=== PATIENT | female | born 1960 | race Caucasian/White ===

== ENCOUNTER 2018-05-16 02:06 | Inpatient (IN) | payer OTHER ==
[~2018-05-16] VITALS: Ht 160 cm; Wt 50.9 kg
[2018-05-16] VITALS (8 sets, daily range): BP systolic 97–149; BP diastolic 75–93
[2018-05-16] MEDS ORDERED: LIDOCAINE 1% W/EPINEPHRINE 20 ML VIAL INJ STA (02:34)
[2018-05-16] MEDS ORDERED: VANCOMYCIN 1GM/NS 250 ML 250 ML IV STA (02:45)
[2018-05-16] MEDS ORDERED: INSULIN REGULAR, HUMAN 100 UNIT/1 ML 3ML VIAL SQ STA (02:59)
[2018-05-16] MEDS ORDERED: DEXTROSE 50% SYRINGE 50 ML IV PRN (03:00)
[2018-05-16] MEDS ORDERED: SODIUM CHLORIDE FLUSH 10 ML SYR INJ PRN (03:00)
[2018-05-16] MEDS ORDERED: ONDANSETRON HCL INJ 2 MG/ML VIAL IV PRN (03:00)
[2018-05-16] MEDS ORDERED: POTASSIUM CHLORIDE 20 MEQ TAB CR PO STA (03:01)
[2018-05-16] MEDS: INSULIN REGULAR, HUMAN 100 UNIT/1 ML 3ML VIAL SQ SCH ×4 (08:09→20:12)
[2018-05-16] MEDS ORDERED: CEFEPIME 1GM/NS 0.9% 50 ML 50 ML IV SCH (10:45)
[2018-05-16] MEDS: FAMOTIDINE 20 MG TAB PO SCH ×2 (11:45→17:52)
[2018-05-16] MEDS: CEFEPIME HCL 1 GM VIAL IV SCH ×2 (11:45→20:00)
[2018-05-16] MEDS: METFORMIN HCL 500 MG TAB PO SCH ×2 (11:45→17:53)
--- NOTE | 2018-05-16 13:44 | History and Physical ---
PRIMARY CARE PHYSICIAN: Patient has no primary care, goes to the [facility]. Has not seen a doctor in a while. CHIEF COMPLAINT: Boil, right upper extremity. HISTORY OF PRESENT ILLNESS: Ms. Taylor is a 57-year-old lady who is a chronic smoker. She also is a drug abuser. She admits to injecting crystal meth at the site where she has now an abscess which has been I\T\D'd in the emergency room. She has some surrounding erythema, also has some erythema in the lower part of the arm with a small blister. She states she did not inject there, but may have gotten bitten by a bug. This has been going on for the last couple of weeks, getting worse. Patient only now comes to the hospital for evaluation. REVIEW OF SYSTEMS: She describes some subjective fever and chills. She denies weight loss. She denies sinus congestion or sore throat. She denies chest pain or palpitation. She denies shortness breath, wheezing or cough. She denies abdominal pain, nausea, vomiting or melena. She denies dysuria or flank pain. She denies rash, although has swelling and erythema of both upper and lower right extremity. She denies bleeding or bruising. She denies joint pain or swelling. She denies headache, vertigo or loss of consciousness. She denies depression, agitation, homicide or suicidal ideation, but does admit to drug abuse. PAST MEDICAL HISTORY: Significant for longstanding hypertension and type 2 diabetes. She is currently taking no medications. She has been out for a long time. She had previously been on blood pressure medicine and metformin and insulin; however, again not taking any medication recently in the last couple of months. She has a history of ankle surgery. She is a chronic smoker and drug abuser. ALLERGIES: SHE HAS A STATED ALLERGY TO DEPAKOTE AND PENICILLIN. FAMILY HISTORY: Remarkable for some scattered hypertension and diabetes. SOCIAL HISTORY: The patient is . [place]ian is her primary language. She does admit to smoking on a daily basis. She does admit to drug abuse, both crystal meth and marijuana. She is generally independently functioning. PHYSICAL EXAM PSYCHIATRIC: She is alert and oriented x3 with normal mood and affect. CONSTITUTIONAL: She has a normal body habitus, somewhat underweight 100 pounds. She is in no acute distress. VITAL SIGNS: Blood pressure 120/79, pulse 84 and regular, respiratory rate 14, O2 sat 99% on room air, and temperature 98.4. HEENT: Her head is atraumatic. Her eyes are anicteric. Ears and nares are without erythema or discharge. Oropharynx was clear. She has very poor dentition. NECK: Supple with no mass or thyromegaly. LYMPHATIC SYSTEM: She has no palpable cervical, axillary or inguinal adenopathy. CARDIOVASCULAR: Her heart has a regular rate and rhythm without murmur or extra heart sounds. She has no carotid bruit. She has weak dorsal pedal pulses and no edema. RESPIRATORY: Clear to auscultation and percussion with somewhat diminished breath sounds. She has normal respiratory effort. GASTROINTESTINAL: Abdomen is soft without organomegaly, masses or tenderness. She has normal bowel sounds present. CUTANEOUS: Her skin is warm and dry to the touch. She has some erythema and swelling in the right upper extremity. She has some erythema in the lower part. On the lateral forearm, there is some area of erythema with a central blister. On the upper arm, there is a surgical dressing, status post I and D and abscess in the emergency department. MUSCULOSKELETAL: Her joints are in normal alignment without erythema or swelling. She has no calf tenderness. NEUROLOGIC: Nonfocal with intact cranial nerves and no motor or sensory deficits. DIAGNOSTIC STUDIES: Her UA is clear. Her UDS is positive for cocaine, THC and methamphetamine. Lactic acid 13.9 which is normal. Chemistry shows sodium 130, potassium 3.1, chloride 94, CO2 of 30, creatinine 0.7, BUN 9 for a normal GFR, calcium is 9.2, glucose 390. Transaminases and bilirubin are normal. Alk phos slightly elevated at 204. Her white count is 11.7 with 77% neutrophils and 16% lymphocytes, hemoglobin is 13.9, hematocrit 42.2 and platelet count 182,000. IMPRESSION AND PLAN 1. Cellulitis/abscess, right upper extremity. The patient is status post incision and drainage of the abscess in the emergency department, has a wound dressing in place. We will get wound care to address that and we will start the patient on IV vancomycin and Zosyn empirically. 2. Type 2 diabetes that is poorly controlled. The patient will be restarted on metformin plus sliding scale insulin. 3. Hypertension, reportedly although patient's blood pressure is fairly normal right now. We will monitor for now with no medications. 4. Drug abuse. The patient received extensive counseling on the dangers of injectable drug abuse. 5. Prophylaxis. The patient is on Lovenox for deep venous thrombosis prophylaxis and Protonix for gastrointestinal prophylaxis. Job#: [id number] NICO
[2018-05-16] MEDS: ACETAMINOPHEN/CODEINE 300MG - 30MG TAB PO PRN (13:53)
[2018-05-16] MEDS ORDERED: SODIUM CHLORIDE 0.9% 100 ML ONE (15:09)
[2018-05-16] MEDS: VANCOMYCIN 1GM/NS 250 ML 250 ML IV SCH (15:11)
[2018-05-16] MEDS: OYST-CAL-D 500MG TABLET PO SCH (17:53)
[2018-05-16] MEDS: ASCORBIC ACID 500 MG TAB PO SCH (17:53)
[2018-05-16] MEDS: ENOXAPARIN SOD INJ 40 MG/0.4 ML SYR SC SCH (17:54)
[2018-05-17] VITALS (7 sets, daily range): BP systolic 99–158; BP diastolic 75–112
[2018-05-17] MEDS: VANCOMYCIN 1GM/NS 250 ML 250 ML IV SCH ×2 (03:00→15:00)
[2018-05-17] MEDS: CEFEPIME HCL 1 GM VIAL IV SCH ×3 (04:00→20:45)
[2018-05-17] MEDS ORDERED: ASPIRIN 81 MG CHEW TAB PO ONE (04:30)
[2018-05-17 05:28] LABS: BASOPHILS % 0.5 % (0.0-1.0); EOSINOPHILS # (AUTO) 0.1 (0.0-0.4); EOSINOPHILS % 1.5 % (0.0-6.0); HEMOGLOBIN 11.1 g/dL (12.0-16.0); LYMPHOCYTES # (AUTO) 1.6 (1.0-3.2); LYMPHOCYTES % 26.3 % (18.0-39.1); MEAN CORPUSCULAR HEMOGLOBIN 27.3 pg (28-32); MEAN CORPUSCULAR HGB CONC 32.6 g/dL (31-35); MEAN CORPUSCULAR VOLUME 83.5 fL (81-99); MONOCYTES # (AUTO) 0.3 (0.2-0.8); MONOCYTES % 5.4 % (4.4-11.3); NEUTROPHILS % 65.5 % (38.7-80.0); PLATELET COUNT 135 x10e3/uL (140-360); RED BLOOD COUNT 4.07 x10e6/uL (3.6-5.1)
[2018-05-17 05:43] LABS: ANION GAP 11.1 mmol/L (8-16); BLOOD UREA NITROGEN 16 mg/dL (7-26); BUN/CREATININE RATIO 21 (6-25); CALCIUM 8.7 mg/dL (8.4-10.2); CARBON DIOXIDE 29 mmol/L (22-29); CHLORIDE 98 mmol/L (98-107); CREATININE, SERUM 0.76 mg/dL (0.57-1.11); EST GLOMERULAR FILTRATION RATE > 60 ML/MIN (60-); GLUCOSE 220 mg/dL (74-118); POTASSIUM 4.1 mmol/L (3.5-5.1); SODIUM 134 mmol/L (136-145)
[2018-05-17 05:45] LABS: CREATINE KINASE 16 IU/L (29-168)
[2018-05-17] MEDS: FAMOTIDINE 20 MG TAB PO SCH ×2 (09:20→17:13)
[2018-05-17] MEDS: SILVER ANTIMICROBIAL WOUND GEL 45ML TOP SCH (09:21)
[2018-05-17] MEDS: INSULIN REGULAR, HUMAN 100 UNIT/1 ML 3ML VIAL SQ SCH ×4 (09:21→21:00)
[2018-05-17] MEDS: OYST-CAL-D 500MG TABLET PO SCH ×2 (09:21→17:13)
[2018-05-17] MEDS: MULTIVITAMINS/MINERALS TAB PO SCH (09:21)
[2018-05-17] MEDS: MAGNESIUM OXIDE 400 MG TAB PO SCH (09:21)
[2018-05-17] MEDS: METFORMIN HCL 500 MG TAB PO SCH ×2 (09:21→17:13)
[2018-05-17] MEDS: ZINC SULFATE 220 MG CAP PO SCH (09:21)
[2018-05-17] MEDS: ASCORBIC ACID 500 MG TAB PO SCH ×2 (09:21→17:13)
[2018-05-17] MEDS: ENOXAPARIN SOD INJ 40 MG/0.4 ML SYR SC SCH (17:13)
[2018-05-17] MEDS: NICOTINE 21 MG/EA PATCH TOP SCH (17:40)
[2018-05-17] MEDS: ACETAMINOPHEN/CODEINE 300MG - 30MG TAB PO PRN (23:05)
[2018-05-18] VITALS (8 sets, daily range): BP systolic 103–138; BP diastolic 70–114
[2018-05-18] MEDS: VANCOMYCIN 1GM/NS 250 ML 250 ML IV SCH ×2 (03:30→15:02)
--- NOTE | 2018-05-18 03:40 | Consultation ---
DATE OF CONSULTATION: May 17, 2018 CHIEF COMPLAINT: Right arm infection. HISTORY OF PRESENT ILLNESS: This patient is a 57-year-old female with history of drug abuse, injecting crystal meth into her extremity. The patient had developed abscess in the right upper extremity. She was seen in the emergency room and it was I and D'd by ER physician. Patient developed another abscess in the distal forearm close to the wrist. Patient denies injecting there. She has had increasing pain and swelling. PAST MEDICAL HISTORY: Positive for hypertension and diabetes. Patient has been noncompliant. SURGICAL HISTORY: Unremarkable. ALLERGIES: SHE IS ALLERGIC TO DEPAKOTE AND PENICILLIN. REVIEW OF SYSTEMS: Unremarkable except for current complaint. SOCIAL HABITS: Patient is a chronic smoker and uses crystal meth and marijuana also. PHYSICAL EXAMINATION VITALS: Stable. She is afebrile. GENERAL: Patient is awake, alert, no apparent distress. HEENT: Sclera nonicteric. NECK: Supple. LUNGS: Clear. HEART: Regular rate and rhythm. ABDOMEN: Soft and nontender. EXTREMITIES: A 2-cm area of erythema, swelling, and induration with central abscess formations in the lateral aspect of the right forearm. LABS: White cell count is 6. ASSESSMENT: Right forearm cutaneous abscess. PLAN: Incision and drainage under local anesthesia. Attendant risks discussed. Job#: [id number]
[2018-05-18] MEDS: CEFEPIME HCL 1 GM VIAL IV SCH ×3 (04:13→20:33)
[2018-05-18 05:18] LABS: BASOPHILS % 0.7 % (0.0-1.0); EOSINOPHILS # (AUTO) 0.1 (0.0-0.4); EOSINOPHILS % 1.9 % (0.0-6.0); HEMATOCRIT 34.1 % (34.2-44.1); LYMPHOCYTES # (AUTO) 1.7 (1.0-3.2); LYMPHOCYTES % 29.2 % (18.0-39.1); MEAN CORPUSCULAR HEMOGLOBIN 26.8 pg (28-32); MEAN CORPUSCULAR HGB CONC 32.3 g/dL (31-35); MEAN CORPUSCULAR VOLUME 83.2 fL (81-99); MONOCYTES # (AUTO) 0.4 (0.2-0.8); MONOCYTES % 7.6 % (4.4-11.3); NEUTROPHILS # (AUTO) 3.4 (2.1-6.9); NEUTROPHILS % 59.6 % (38.7-80.0); PLATELET COUNT 140 x10e3/uL (140-360); RED CELL DISTRIBUTION WIDTH 13.1 % (11.7-14.4)
[2018-05-18 05:54] LABS: BLOOD UREA NITROGEN 19 mg/dL (7-26); BUN/CREATININE RATIO 29 (6-25); CARBON DIOXIDE 27 mmol/L (22-29); CHLORIDE 100 mmol/L (98-107); CREATININE, SERUM 0.65 mg/dL (0.57-1.11); EST GLOMERULAR FILTRATION RATE > 60 ML/MIN (60-); GLUCOSE 135 mg/dL (74-118); SODIUM 134 mmol/L (136-145)
[2018-05-18 06:17] LABS: MAGNESIUM 1.1 MG/DL (1.3-2.1)
[2018-05-18] MEDS ORDERED: MAGNESIUM SULFATE 2GM/50ML 50 ML IV ONE (06:30)
[2018-05-18] MEDS ORDERED: BISACODYL 5 MG TAB EC PO PRN (08:15)
[2018-05-18] MEDS: METFORMIN HCL 500 MG TAB PO SCH ×2 (08:47→17:17)
[2018-05-18] MEDS: FAMOTIDINE 20 MG TAB PO SCH ×2 (08:47→17:17)
[2018-05-18] MEDS: INSULIN REGULAR, HUMAN 100 UNIT/1 ML 3ML VIAL SQ SCH ×4 (08:47→21:20)
[2018-05-18] MEDS: POLYETHYLENE GLYCOL 3350 17 GM PACK PO SCH (08:48)
[2018-05-18] MEDS: MULTIVITAMINS/MINERALS TAB PO SCH (08:48)
[2018-05-18] MEDS: OYST-CAL-D 500MG TABLET PO SCH ×2 (08:48→17:17)
[2018-05-18] MEDS: DOCUSATE SODIUM 100 MG CAP PO SCH ×2 (08:48→17:17)
[2018-05-18] MEDS: ASCORBIC ACID 500 MG TAB PO SCH ×2 (08:48→17:17)
[2018-05-18] MEDS: SILVER ANTIMICROBIAL WOUND GEL 45ML TOP SCH (08:48)
[2018-05-18] MEDS: ZINC SULFATE 220 MG CAP PO SCH (08:48)
[2018-05-18] MEDS: MAGNESIUM OXIDE 400 MG TAB PO SCH (08:48)
[2018-05-18] MEDS: NICOTINE 21 MG/EA PATCH TOP SCH (09:39)
[2018-05-18] MEDS ORDERED: LIDOCAINE HCL 1% LOCAL INJ 20 ML VIAL INJ ONE (11:15)
[2018-05-18] MEDS ORDERED: LIDOCAINE 1% W/EPINEPHRINE 20 ML VIAL INJ ONE (12:00)
[2018-05-18] MEDS: ACETAMINOPHEN/CODEINE 300MG - 30MG TAB PO PRN (12:30)
--- NOTE | 2018-05-18 14:16 | Operative Report ---
DATE OF PROCEDURE: May 18, 2018 PREOPERATIVE DIAGNOSIS: Right arm abscesses. POSTOPERATIVE DIAGNOSIS: Right arm abscesses. OPERATIVE PROCEDURE: Incision and drainage of right arm abscesses. ANESTHESIA: Local. INDICATIONS: The patient is a 57-year-old female with history of abscess formations in the right arm area, one of which is from injection of drugs, the other one patient thought to be secondary to insect bite in the forearm. She has consented for I\T\D under local anesthesia with all attendant risks discussed. DESCRIPTION OF PROCEDURE: The patient was placed in supine position in her hospital bed. The right arm at the specific place of procedure was prepped with Betadine and draped in sterile fashion. Using 1% lidocaine with epinephrine, the 2 abscesses were then locally anesthetized. After local anesthesia had taken effect, a cruciate incision was made on the roof of the abscess on both areas, deepening into the cavity until purulent material was evacuated. Using the hemostat, the cavity was explored and all loculations broken up. A large amount abscess was evacuated from the forearm area. The wound was then packed with iodoform gauze. The one on the upper arm was also opened and explored with hemostat. A small amount of purulent material was evacuated and wound packed with iodoform. Dressing applied. Patient tolerated procedure well. Estimated blood loss 1 mL. Job#: [id number] ANNALISE
[2018-05-18] MEDS: ENOXAPARIN SOD INJ 40 MG/0.4 ML SYR SC SCH (17:17)
[2018-05-18] MEDS: ACETAMINOPHEN 325 MG TAB PO PRN (21:21)
[2018-05-18] MEDS: ZOLPIDEM TARTRATE 5 MG TAB PO PRN (23:50)
[2018-05-19] VITALS (8 sets, daily range): BP systolic 111–142; BP diastolic 79–92
[2018-05-19 03:10] LABS: BASOPHILS % 0.7 % (0.0-1.0); EOSINOPHILS # (AUTO) 0.1 (0.0-0.4); EOSINOPHILS % 1.1 % (0.0-6.0); HEMATOCRIT 34.9 % (34.2-44.1); HEMOGLOBIN 11.2 g/dL (12.0-16.0); LYMPHOCYTES # (AUTO) 1.3 (1.0-3.2); LYMPHOCYTES % 29.6 % (18.0-39.1); MEAN CORPUSCULAR HEMOGLOBIN 26.8 pg (28-32); MEAN CORPUSCULAR HGB CONC 32.1 g/dL (31-35); MEAN CORPUSCULAR VOLUME 83.5 fL (81-99); MONOCYTES # (AUTO) 0.4 (0.2-0.8); MONOCYTES % 8.8 % (4.4-11.3); NEUTROPHILS # (AUTO) 2.6 (2.1-6.9); NEUTROPHILS % 59.1 % (38.7-80.0); PLATELET COUNT 145 x10e3/uL (140-360); RED BLOOD COUNT 4.18 x10e6/uL (3.6-5.1); RED CELL DISTRIBUTION WIDTH 13.1 % (11.7-14.4)
[2018-05-19 03:33] LABS: BLOOD UREA NITROGEN 19 mg/dL (7-26); BUN/CREATININE RATIO 28 (6-25); CALCIUM 8.7 mg/dL (8.4-10.2); CARBON DIOXIDE 27 mmol/L (22-29); CREATININE, SERUM 0.68 mg/dL (0.57-1.11); EST GLOMERULAR FILTRATION RATE > 60 ML/MIN (60-); GLUCOSE 173 mg/dL (74-118)
[2018-05-19] MEDS: CEFEPIME HCL 1 GM VIAL IV SCH ×3 (03:51→20:00)
[2018-05-19 04:11] LABS: CHLORIDE 101 mmol/L (98-107); MAGNESIUM 1.4 MG/DL (1.3-2.1); SODIUM 136 mmol/L (136-145)
[2018-05-19] MEDS: VANCOMYCIN 1GM/NS 250 ML 250 ML IV SCH ×2 (04:29→15:49)
[2018-05-19] MEDS: NICOTINE 21 MG/EA PATCH TOP SCH (08:28)
[2018-05-19] MEDS: SILVER ANTIMICROBIAL WOUND GEL 45ML TOP SCH ×2 (08:31→18:17)
[2018-05-19] MEDS: MULTIVITAMINS/MINERALS TAB PO SCH (08:31)
[2018-05-19] MEDS: MAGNESIUM OXIDE 400 MG TAB PO SCH (08:31)
[2018-05-19] MEDS: ZINC SULFATE 220 MG CAP PO SCH (08:31)
[2018-05-19] MEDS: OYST-CAL-D 500MG TABLET PO SCH ×2 (08:31→17:38)
[2018-05-19] MEDS: FAMOTIDINE 20 MG TAB PO SCH ×2 (08:31→15:50)
[2018-05-19] MEDS: DOCUSATE SODIUM 100 MG CAP PO SCH ×2 (08:31→17:38)
[2018-05-19] MEDS: POLYETHYLENE GLYCOL 3350 17 GM PACK PO SCH (08:31)
[2018-05-19] MEDS: INSULIN REGULAR, HUMAN 100 UNIT/1 ML 3ML VIAL SQ SCH ×4 (08:31→20:29)
[2018-05-19] MEDS: ASCORBIC ACID 500 MG TAB PO SCH ×2 (08:31→17:38)
[2018-05-19] MEDS: METFORMIN HCL 500 MG TAB PO SCH ×2 (08:31→17:38)
[2018-05-19] MEDS ORDERED: TRAMADOL HCL 50 MG TAB PO PRN (11:45)
[2018-05-19] MEDS: ENOXAPARIN SOD INJ 40 MG/0.4 ML SYR SC SCH (17:38)
[2018-05-19] MEDS: INSULIN DETEMIR 100 UNIT/ML PEN SQ SCH (17:39)
[2018-05-19] MEDS: ACETAMINOPHEN 325 MG TAB PO PRN (18:09)
[2018-05-19] MEDS: ZOLPIDEM TARTRATE 5 MG TAB PO PRN (23:25)
[2018-05-20] VITALS: BP 157/91
[2018-05-20] MEDS ORDERED: SODIUM CHLORIDE 0.9% 250ML 250 ML ONE (02:28)
[2018-05-20] MEDS: VANCOMYCIN 1GM/NS 250 ML 250 ML IV SCH (02:33)
[2018-05-20] MEDS: CEFEPIME HCL 1 GM VIAL IV SCH ×2 (03:31→12:13)
[2018-05-20 04:20] VITALS: BP 143/84
[2018-05-20] MEDS: INSULIN REGULAR, HUMAN 100 UNIT/1 ML 3ML VIAL SQ SCH ×2 (07:30→11:30)
[2018-05-20 07:38] VITALS: BP 155/90
[2018-05-20 07:40] VITALS: BP 155/90
[2018-05-20] MEDS: OYST-CAL-D 500MG TABLET PO SCH (09:09)
[2018-05-20] MEDS: METFORMIN HCL 500 MG TAB PO SCH (09:09)
[2018-05-20] MEDS: DOCUSATE SODIUM 100 MG CAP PO SCH (09:09)
[2018-05-20] MEDS: POLYETHYLENE GLYCOL 3350 17 GM PACK PO SCH (09:09)
[2018-05-20] MEDS: FAMOTIDINE 20 MG TAB PO SCH (09:09)
[2018-05-20] MEDS: ZINC SULFATE 220 MG CAP PO SCH (09:09)
[2018-05-20] MEDS: ASCORBIC ACID 500 MG TAB PO SCH (09:09)
[2018-05-20] MEDS: NICOTINE 21 MG/EA PATCH TOP SCH (09:09)
[2018-05-20] MEDS: MAGNESIUM OXIDE 400 MG TAB PO SCH (09:09)
[2018-05-20] MEDS: MULTIVITAMINS/MINERALS TAB PO SCH (09:09)
[2018-05-20] MEDS: INSULIN DETEMIR 100 UNIT/ML PEN SQ SCH (09:10)
[2018-05-20] MEDS ORDERED: GLIPIZIDE 5 MG TAB PO SCH (09:15)
[2018-05-20 09:24] LABS: BASOPHILS % 0.7 % (0.0-1.0); EOSINOPHILS # (AUTO) 0.1 (0.0-0.4); EOSINOPHILS % 1.4 % (0.0-6.0); HEMOGLOBIN 12.4 g/dL (12.0-16.0); LYMPHOCYTES # (AUTO) 1.5 (1.0-3.2); LYMPHOCYTES % 27.2 % (18.0-39.1); MEAN CORPUSCULAR HEMOGLOBIN 27.1 pg (28-32); MEAN CORPUSCULAR HGB CONC 32.6 g/dL (31-35); MONOCYTES # (AUTO) 0.4 (0.2-0.8); MONOCYTES % 7.2 % (4.4-11.3); NEUTROPHILS # (AUTO) 3.4 (2.1-6.9); NEUTROPHILS % 62.4 % (38.7-80.0); PLATELET COUNT 174 x10e3/uL (140-360); RED BLOOD COUNT 4.58 x10e6/uL (3.6-5.1)
[2018-05-20] MEDS ORDERED: Multivitamins/Minerals PO (09:30)
[2018-05-20] MEDS ORDERED: MAGNESIUM OXID400 MG PO (09:30)
[2018-05-20] MEDS ORDERED: GLIPIZIDE5 MG PO (09:30)
[2018-05-20] MEDS ORDERED: SILVASORB480 ML TOP (09:30)
[2018-05-20] MEDS ORDERED: ASCORBIC ACID500 MG PO (09:30)
[2018-05-20] MEDS ORDERED: ULTRAM 50MG50 MG PO (09:30)
[2018-05-20] MEDS ORDERED: Calcium Carbonate PO (09:30)
[2018-05-20] MEDS ORDERED: ZINC SULFATE220 M1 PO (09:30)
[2018-05-20] MEDS ORDERED: METFORMIN HCL500 MG PO (09:30)
[2018-05-20 09:43] LABS: ANION GAP 12.2 mmol/L (8-16); BLOOD UREA NITROGEN 18 mg/dL (7-26); BUN/CREATININE RATIO 24 (6-25); CALCIUM 9.2 mg/dL (8.4-10.2); CARBON DIOXIDE 25 mmol/L (22-29); CHLORIDE 102 mmol/L (98-107); CREATININE, SERUM 0.76 mg/dL (0.57-1.11); EST GLOMERULAR FILTRATION RATE > 60 ML/MIN (60-); GLUCOSE 215 mg/dL (74-118); MAGNESIUM 1.5 MG/DL (1.3-2.1); POTASSIUM 4.2 mmol/L (3.5-5.1); SODIUM 135 mmol/L (136-145)
[2018-05-20] MEDS ORDERED: BACTRIM DS TAB1 EACH PO ×2 (10:38→10:39)
[2018-05-20] MEDS ORDERED: RIFAMPIN300 MG PO (10:39)
[2018-05-20] MEDS: SILVER ANTIMICROBIAL WOUND GEL 45ML TOP SCH (11:09)
[2018-05-20 11:40] VITALS: BP 131/100
[2018-05-20 12:36] VITALS: BP 132/88
--- NOTE | 2018-05-21 13:58 | Discharge Summary ---
ADMISSION DIAGNOSES 1. Cellulitis, abscess, right upper extremity. 2. Type 2 diabetes. 3. Hypertension. 4. Drug abuse. DISCHARGE DIAGNOSES 1. Cellulitis, abscess, right upper extremity. 2. Type 2 diabetes. 3. Hypertension. 4. Drug abuse. 5. Methicillin-resistant Staphylococcus aureus of the wound. 6. Hyponatremia. HISTORY: The patient has a history of hypertension, type diabetes. She is not taking any medications as she has been out for a long time. She was previously on blood pressure medicine and insulin. However, she has not refilled any in months. She has a surgical history of an ankle surgery. She is a chronic smoker and drug abuser. HOSPITAL COURSE: A 57-year-old female admits to injecting crystal meth at the site where she now has an abscess, which had been incised and drained in the ER on the biceps area of the right upper arm. She also has an abscess on the right forearm, which she states must have been a bug bite because she had not injected any meth in that area. She states that these areas have been erythematous for weeks, but she came to the ER when they kept getting worse. On admission, the patient was started on vancomycin and Zosyn. She was started on metformin as well as sliding scale insulin. After the initial I\T\D in the ER, she had an additional I\T\D I her room per surgery. That wound culture showed MRSA. The patient was sent home with Rifampin and Bactrim b.i.d. x10 additional days, plus wound care supplements as well as metformin and glipizide daily. The patient was instructed on how to take care of her wound. She was encouraged to stop with the drug use and encouraged to take her meds as prescribed. Vital signs stable. The patient afebrile. The patient will discharge home today and follow up with primary care physician in one to two weeks. She understands discharge instructions and followup and agrees with plan. Dictated by: Seema White NP JOSH POOL MD Job#: [id number]
== END 2018-05-20 13:25 | disposition home or self-care (01) | DRG 603 ==
LOC: FSED 02:06 → ERHOLD 02:58 → OBSVTOIN 02:58 → IMCU 04:18 → MED/SURG3 13:04
PROVIDERS: ADMIT Internal Medicine; ATTEND Internal Medicine
PROC: 0X940ZZ Drainage of Right Axilla, Open Approach (ICD-10-PCS; principal; 2018-05-16)
PROC: 0X940ZZ Drainage of Right Axilla, Open Approach (ICD-10-PCS; 2018-05-18)
DX: L03.111 Cellulitis of right axilla (principal); F11.20 Opioid dependence, uncomplicated; F14.20 Cocaine dependence, uncomplicated; E87.1 Hypo-osmolality and hyponatremia; E11.9 Type 2 diabetes mellitus without complications; I10 Essential (primary) hypertension; Z72.0 Tobacco use; B95.62 Methicillin resistant Staphylococcus aureus infection as the cause of diseases classified elsewhere; Z91.14 Patient's other noncompliance with medication regimen; E11.65 Type 2 diabetes mellitus with hyperglycemia; E83.42 Hypomagnesemia; G47.00 Insomnia, unspecified; K59.00 Constipation, unspecified
CPT/HCPCS: 36415; 80048; 80053; 80202; 80307; 81025; 82550; 82553; 82948; 83036; 83605; 83735; 84443; 84484; 85025; 87040; 87071; 87186; 87205; 93005; 99284; J0692; J1650; J2405; J3370; J7050

== ENCOUNTER 2018-07-31 10:58 | Inpatient (IN) | payer OTHER ==
[~2018-07-31] VITALS: Ht 160 cm; Wt 54.1 kg
[~2018-07-31 10:58] MED LIST: ASCORBIC ACID500 MG PO; BACTRIM DS TAB1 EACH PO; Calcium Carbonate PO; GLIPIZIDE5 MG PO; MAGNESIUM OXID400 MG PO; METFORMIN HCL500 MG PO; Multivitamins/Minerals PO; RIFAMPIN300 MG PO; SILVASORB480 ML TOP; ULTRAM 50MG50 MG PO; ZINC SULFATE220 M1 PO
[2018-07-31] MEDS ORDERED: SODIUM CHLORIDE 0.9% 1000ML 1,000 ML IV STA (11:11)
[2018-07-31] MEDS ORDERED: ONDANSETRON HCL INJ 2 MG/ML VIAL IV STA (11:11)
[2018-07-31] MEDS ORDERED: MORPHINE SULFATE 2 MG/ML SYR IV STA (11:11)
[2018-07-31 11:55] LABS: BASOPHILS # (AUTO) 0.1 (0.0-0.1); BASOPHILS % 0.7 % (0.0-1.0); EOSINOPHILS # (AUTO) 0.1 (0.0-0.4); EOSINOPHILS % 1.1 % (0.0-6.0); HEMATOCRIT 35.3 % (34.2-44.1); HEMOGLOBIN 11.5 g/dL (12.0-16.0); LYMPHOCYTES # (AUTO) 1.8 (1.0-3.2); MEAN CORPUSCULAR HEMOGLOBIN 27.5 pg (28-32); MEAN CORPUSCULAR HGB CONC 32.6 g/dL (31-35); MEAN CORPUSCULAR VOLUME 84.4 fL (81-99); MONOCYTES # (AUTO) 0.5 (0.2-0.8); MONOCYTES % 5.7 % (4.4-11.3); NEUTROPHILS # (AUTO) 5.6 (2.1-6.9); NEUTROPHILS % 69.6 % (38.7-80.0); PLATELET COUNT 266 x10e3/uL (140-360); RED BLOOD COUNT 4.18 x10e6/uL (3.6-5.1)
[2018-07-31] MEDS: CEFEPIME HCL 1 GM VIAL IV SCH ×2 (11:55→20:55)
[2018-07-31 12:18] LABS: ALBUMIN/GLOBULIN RATIO 0.7 (0.8-2.0); ANION GAP 15.7 mmol/L (8-16); CALCIUM 9.3 mg/dL (8.4-10.2); CREATININE, SERUM 1.19 mg/dL (0.57-1.11); POTASSIUM 3.7 mmol/L (3.5-5.1)
[2018-07-31] MEDS ORDERED: ONDANSETRON HCL INJ 2 MG/ML VIAL IV PRN (13:00)
[2018-07-31] MEDS ORDERED: MORPHINE SULFATE 2 MG/ML SYR IV PRN (13:00)
[2018-07-31] MEDS ORDERED: PIPER-TAZ 3.375 GM 50 ML IV SCH (14:00)
[2018-07-31 14:36] LABS: CLARITY,URINE CLEAR (CLEAR); COLOR,URINE YELLOW (YELLOW); KETONES,URINE NEGATIVE (NEGATIVE); LEUKOCYTE ESTERASE ,URINE NEGATIVE (NEGATIVE); NITRITE,URINE NEGATIVE (NEGATIVE); PROTEIN,URINE DIPSTICK NEGATIVE (NEGATIVE)
[2018-07-31 14:37] LABS: AMPHETAMINES SCREEN,URINE NEGATIVE (NEGATIVE); BENZODIAZEPINES SCREEN,URINE NEGATIVE (NEGATIVE); BILIRUBIN,URINE NEGATIVE (NEGATIVE); PHENCYCLIDINE SCREEN,URINE NEGATIVE (NEGATIVE); URINE UROBILINOGEN 0.2 mg/dL (0.2 - 1)
[2018-07-31 14:42] LABS: BACTERIA,URINE FEW /HPF; EPITHELIAL CELLS,URINE MODERATE /LPF
[2018-07-31] MEDS ORDERED: DEXTROSE 50% SYRINGE 50 ML IV PRN (15:45)
[2018-07-31] MEDS: SODIUM CHLORIDE 0.9% 1000ML 1,000 ML IV SCH (15:50)
[2018-07-31 16:00] VITALS: BP 135/73
[2018-07-31 16:26] VITALS: BP 138/93
[2018-07-31] MEDS: INSULIN REGULAR, HUMAN 100 UNIT/1 ML 3ML VIAL SQ SCH ×2 (17:40→21:00)
[2018-07-31 20:41] VITALS: BP 136/82
[2018-07-31] MEDS: MORPHINE SULFATE INJ 4 MG/ML INJ IV PRN (21:10)
[2018-08-01] VITALS (8 sets, daily range): BP systolic 133–177; BP diastolic 82–97
[2018-08-01] MEDS: SODIUM CHLORIDE 0.9% 1000ML 1,000 ML IV SCH ×3 (02:37→17:50)
[2018-08-01 04:39] LABS: BASOPHILS % 0.7 % (0.0-1.0); EOSINOPHILS # (AUTO) 0.1 (0.0-0.4); EOSINOPHILS % 1.5 % (0.0-6.0); HEMATOCRIT 29.1 % (34.2-44.1); HEMOGLOBIN 9.1 g/dL (12.0-16.0); LYMPHOCYTES # (AUTO) 1.7 (1.0-3.2); LYMPHOCYTES % 31.4 % (18.0-39.1); MEAN CORPUSCULAR HEMOGLOBIN 27.1 pg (28-32); MEAN CORPUSCULAR HGB CONC 31.3 g/dL (31-35); MEAN CORPUSCULAR VOLUME 86.6 fL (81-99); MONOCYTES # (AUTO) 0.3 (0.2-0.8); MONOCYTES % 6.3 % (4.4-11.3); NEUTROPHILS # (AUTO) 3.3 (2.1-6.9); NEUTROPHILS % 59.7 % (38.7-80.0); PLATELET COUNT 200 x10e3/uL (140-360); RED BLOOD COUNT 3.36 x10e6/uL (3.6-5.1)
[2018-08-01 05:04] LABS: ALANINE AMINOTRANSFERASE 10 IU/L (0-55); ALBUMIN/GLOBULIN RATIO 0.7 (0.8-2.0); ALKALINE PHOSPHATASE 96 IU/L (40-150); ANION GAP 12.2 mmol/L (8-16); BLOOD UREA NITROGEN 11 mg/dL (7-26); BUN/CREATININE RATIO 16 (6-25); CARBON DIOXIDE 20 mmol/L (22-29); CHLORIDE 110 mmol/L (98-107); CREATININE, SERUM 0.67 mg/dL (0.57-1.11); EST GLOMERULAR FILTRATION RATE > 60 ML/MIN (60-); GLUCOSE 138 mg/dL (74-118); POTASSIUM 3.2 mmol/L (3.5-5.1); SODIUM 139 mmol/L (136-145)
[2018-08-01 05:06] LABS: CALCIUM 6.9 mg/dL (8.4-10.2)
[2018-08-01] MEDS ORDERED: CALCIUM GLUCONATE 10% INJ 13.95 MEQ in SODIUM CHLORIDE 0.9% 100 ML 100 ML IV ONE (06:45)
[2018-08-01] MEDS ORDERED: POTASSIUM CHLORIDE 20 MEQ TAB CR PO NR (06:45)
[2018-08-01] MEDS: INSULIN REGULAR, HUMAN 100 UNIT/1 ML 3ML VIAL SQ SCH ×4 (07:30→21:00)
[2018-08-01] MEDS: FOLIC ACID 1 MG TAB PO SCH (09:00)
[2018-08-01] MEDS: MULTIVITAMINS/MINERALS TAB PO SCH (09:00)
[2018-08-01] MEDS: CEFEPIME HCL 1 GM VIAL IV SCH ×2 (09:00→21:10)
[2018-08-01] MEDS: ALPRAZOLAM 0.25 MG TAB PO SCH ×2 (09:00→16:54)
[2018-08-01] MEDS: CLINDAMYCIN 300MG 50 ML IV SCH ×2 (11:00→17:50)
--- NOTE | 2018-08-01 12:37 | Diagnostic Imaging Report ---
PROCEDURE: Frontal and lateral views of the chest. COMPARISON: None. INDICATIONS: ABSCESS, CELLULITIS FINDINGS: Lines/tubes: None. Lungs: The lungs are well inflated. There is no evidence of pneumonia or pulmonary edema. Rounded opacity projecting over the right lower lung zone likely represents nipple shadow. Pleura: There is no pleural effusion or pneumothorax. Heart and mediastinum: The cardiomediastinal silhouette is unchanged. Bones: No acute bony abnormality. IMPRESSION: No acute radiographic abnormality. Dictated by: ANA IVORY M.D. on 08/01/2018 at 11:32 Electronically approved by: ANA IVORY M.D. on 08/01/2018 at 11:32
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
[2018-08-01] MEDS: FAMOTIDINE 20 MG TAB PO SCH (16:30)
[2018-08-01] MEDS: ENOXAPARIN SOD INJ 40 MG/0.4 ML SYR SC SCH (16:54)
[2018-08-01] MEDS: MORPHINE SULFATE INJ 4 MG/ML INJ IV PRN (21:30)
[2018-08-02] VITALS (9 sets, daily range): BP systolic 119–168; BP diastolic 71–95
[2018-08-02] MEDS: CLINDAMYCIN 300MG 50 ML IV SCH ×3 (02:15→17:41)
[2018-08-02] MEDS: SODIUM CHLORIDE 0.9% 1000ML 1,000 ML IV SCH ×3 (04:52→20:15)
[2018-08-02] MEDS: INSULIN REGULAR, HUMAN 100 UNIT/1 ML 3ML VIAL SQ SCH ×4 (07:30→20:15)
[2018-08-02] MEDS: FAMOTIDINE 20 MG TAB PO SCH ×2 (07:30→16:30)
[2018-08-02] MEDS ORDERED: POTASSIUM CHLORIDE 20 MEQ TAB CR PO STA (07:33)
[2018-08-02 08:25] LABS: ANION GAP 13.2 mmol/L (8-16); BLOOD UREA NITROGEN 19 mg/dL (7-26); BUN/CREATININE RATIO 22 (6-25); CALCIUM 9.5 mg/dL (8.4-10.2); CARBON DIOXIDE 28 mmol/L (22-29); CHLORIDE 98 mmol/L (98-107); CREATININE, SERUM 0.88 mg/dL (0.57-1.11); EST GLOMERULAR FILTRATION RATE > 60 ML/MIN (60-); GLUCOSE 357 mg/dL (74-118); POTASSIUM 4.2 mmol/L (3.5-5.1); SODIUM 135 mmol/L (136-145)
[2018-08-02] MEDS: FOLIC ACID 1 MG TAB PO SCH (08:49)
[2018-08-02] MEDS: LABETALOL HCL 100 MG TAB PO SCH ×2 (08:49→20:16)
[2018-08-02] MEDS: MULTIVITAMINS/MINERALS TAB PO SCH (08:49)
[2018-08-02] MEDS: CEFEPIME HCL 1 GM VIAL IV SCH ×2 (08:49→20:09)
[2018-08-02] MEDS: ALPRAZOLAM 0.25 MG TAB PO SCH ×2 (08:52→16:59)
[2018-08-02] MEDS: MUPIROCIN 2% OINT 22 GM TUBE TOP SCH (08:52)
[2018-08-02] MEDS: ENOXAPARIN SOD INJ 40 MG/0.4 ML SYR SC SCH (16:59)
[2018-08-02] MEDS: MORPHINE SULFATE INJ 4 MG/ML INJ IV PRN (19:39)
[2018-08-03] VITALS (8 sets, daily range): BP systolic 100–149; BP diastolic 71–77
[2018-08-03] MEDS: CLINDAMYCIN 300MG 50 ML IV SCH ×3 (01:00→16:55)
--- NOTE | 2018-08-03 03:32 | Progress Note ---
DATE: August 02, 2018 TIME: 7:45 a.m. OVERNIGHT: No events. REVIEW OF SYSTEMS: Denies any dizziness or chest pain. Denies any fever, chills, sweats, nausea, vomiting, or diarrhea. PHYSICAL EXAMINATION GENERAL APPEARANCE: A tired-appearing woman resting in bed. VITAL SIGNS: Reviewed. HEENT: Anicteric. CARDIOVASCULAR: Normal S1 and S2. LUNGS: Normal breath sounds. ABDOMEN: Soft, nontender, and nondistended. EXTREMITIES: She has ulcers on the right leg and left leg. SKIN: She has multiple ulcers; stage 3 ulcer on the right calf medial aspect. She has maculopapular lesions on the right leg and left leg, small one on the finger. She has ulcer on the right calf region. No induration or fluctuance is noted. PSYCHIATRIC: Flat affect. NEUROLOGICAL: Alert and oriented x3. LABS: Reviewed. MEDICATIONS: Reviewed. ASSESSMENT AND PLAN: A 58-year-old woman with: 1. History of ulcer on the right leg/multiple maculopapular rashes on the extremities. 2. Acute kidney injury. 3. Diabetes mellitus type 2. 4. Drug abuse with crack/cocaine use. 5. Normocytic anemia. 6. Underweight state. 7. Hypocalcemia. 8. Hypokalemia. 9. Protein-calorie malnutrition, [id number]. 10. Hypertension. PLAN 1. Start beta mindy. 2. Continue IV antibiotics, cefepime, and clindamycin. 3. Continue local wound care. 4. Continue folic acid, multivitamin, and multi-mineral. 5. Continue alprazolam for anxiety. 6. Discharge planning. Job#: [id number] RTTammi
[2018-08-03] MEDS: INSULIN REGULAR, HUMAN 100 UNIT/1 ML 3ML VIAL SQ SCH ×4 (07:30→20:49)
[2018-08-03] MEDS: FAMOTIDINE 20 MG TAB PO SCH ×2 (07:30→16:30)
[2018-08-03] MEDS: CEFEPIME HCL 1 GM VIAL IV SCH (08:45)
[2018-08-03] MEDS: MULTIVITAMINS/MINERALS TAB PO SCH (09:00)
[2018-08-03] MEDS: ALPRAZOLAM 0.25 MG TAB PO SCH ×2 (09:00→17:00)
[2018-08-03] MEDS: MUPIROCIN 2% OINT 22 GM TUBE TOP SCH (09:00)
[2018-08-03] MEDS: FOLIC ACID 1 MG TAB PO SCH (09:00)
[2018-08-03] MEDS: SODIUM CHLORIDE 0.9% 1000ML 1,000 ML IV SCH ×2 (10:52→20:48)
[2018-08-03] MEDS: VANCOMYCIN 1GM/NS 250 ML 250 ML IV SCH (11:00)
[2018-08-03] MEDS: LABETALOL HCL 100 MG TAB PO SCH ×2 (11:45→20:48)
[2018-08-03] MEDS: MORPHINE SULFATE INJ 4 MG/ML INJ IV PRN ×2 (12:54→20:25)
[2018-08-03] MEDS: ENOXAPARIN SOD INJ 40 MG/0.4 ML SYR SC SCH (17:00)
--- NOTE | 2018-08-03 19:58 | Progress Note ---
DATE: August 03, 2018 TIME OF SERVICE: 11:45 a.m. OVERNIGHT: No acute events. REVIEW OF SYSTEMS: Patient denies chest pain, dizziness, or shortness of breath. Patient denies nausea, vomiting, diarrhea, fever, chills, sweats, or leg pain. PHYSICAL EXAMINATION VITAL SIGNS: T 97.9, P 66, R 18, BP 100/75, SpO2 98% on room air. GENERAL APPEARANCE: A tired-appearing woman resting in bed. HEENT: Normocephalic without sinus tenderness. Oral mucosa dry and intact with poor dentition. Trachea midline without JVD. CV: S1 and S2 without extra cardiac sounds. LUNGS: Bilateral breath sounds are clear to the bases. ABDOMEN: Soft, nontender, and nondistended. EXTREMITIES: Moves all 4 extremities. SKIN: Both dressings to right and left leg clean, dry, and intact. No erythema or warmth noted surrounding dressings. PSYCHIATRIC: Flat affect. NEUROLOGIC: Alert and oriented x3 without gross motor effect present. LABS: Point of care glucose ranging from 290 to 140. MEDICATIONS 1. Morphine 4 mg p.r.n. 2. Labetalol 100 mg p.o. q.12 hours. 3. Vancomycin 1 g q.24 hours. 4. IV NS at 100 mL an hour. 5. Clindamycin q.8 hours. 6. Bactroban ointment bilateral nares x3 days. 7. Folic acid 1 mg once daily. 8. MVI 1 p.o. q.d. 9. Xanax 0.25 mg b.i.d. 10. IV cefepime. 11. Pepcid 20 mg b.i.d. a.c. 12. Prophylactic Lovenox. 13. Sliding scale regular insulin. 14. Sliding scale Zofran. ASSESSMENT AND PLAN: This is a 58-year-old woman with; 1. History of ulcer on the right leg with multiple maculopapular rashes on the extremities. Continue local wound care, IV antibiotic regimen now with vancomycin due to microbiology positive for MRSA. 2. Acute kidney injury. Follow up a.m. values. 3. Diabetes mellitus type 2, sliding scale insulin. 4. Drug abuse with crack/cocaine, opioids, and cannabinoids. Continue alprazolam for anxiety. Patient offers arrangements for outpatient treatment and is unwilling at this time. 5. Normocytic anemia. 6. Underweight state. 7. Hypercalcemia, resolved. 8. Hypokalemia, resolved. 9. Protein-calorie malnutrition, [id number]. Continue p.o. folic acid, MVI. 10. Hypertension, resolved/controlled currently with beta mindy. 11. Prophylaxis. Pepcid. Patient unwilling to utilize SCDs. DISPOSITION: Continue IV vancomycin for MRSA and follow up a.m. values. Dictated by: Nasrin Da Silva NP Job#: [id number] DANNIE
[2018-08-04] VITALS: BP 102/59
[2018-08-04 04:00] VITALS: BP 109/60
[2018-08-04] MEDS: SODIUM CHLORIDE 0.9% 1000ML 1,000 ML IV SCH (05:38)
[2018-08-04] MEDS: INSULIN REGULAR, HUMAN 100 UNIT/1 ML 3ML VIAL SQ SCH ×2 (08:21→12:45)
[2018-08-04] MEDS: ALPRAZOLAM 0.25 MG TAB PO SCH (08:47)
[2018-08-04] MEDS: MULTIVITAMINS/MINERALS TAB PO SCH (08:47)
[2018-08-04] MEDS: MUPIROCIN 2% OINT 22 GM TUBE TOP SCH (08:47)
[2018-08-04] MEDS: MORPHINE SULFATE INJ 4 MG/ML INJ IV PRN (08:47)
[2018-08-04] MEDS: FAMOTIDINE 20 MG TAB PO SCH (08:47)
[2018-08-04] MEDS: FOLIC ACID 1 MG TAB PO SCH (08:47)
[2018-08-04] MEDS: LABETALOL HCL 100 MG TAB PO SCH (08:47)
[2018-08-04] MEDS ORDERED: LABETALOL HCL100 MG PO (09:11)
[2018-08-04] MEDS ORDERED: Multivitamins/Minerals PO (09:11)
[2018-08-04] MEDS ORDERED: MINOCYCLINE HCL50 MG PO (09:11)
[2018-08-04] MEDS ORDERED: CIPRO500 MG PO (09:11)
[2018-08-04] MEDS ORDERED: MUPIROCIN22 GM TOP (09:11)
[2018-08-04 10:38] VITALS: BP 123/77
[2018-08-04 11:50] VITALS: BP 123/77
[2018-08-04 12:00] VITALS: BP 112/55
[2018-08-04] MEDS: VANCOMYCIN 1GM/NS 250 ML 250 ML IV SCH (12:30)
[2018-08-05] MEDS ORDERED: GLIPIZIDE 5 MG TAB PO SCH (09:00)
--- NOTE | 2018-08-05 21:48 | Discharge Summary ---
PRINCIPAL DIAGNOSES: 1. Right leg ulcer related to diabetes mellitus type 2. 2. Acute kidney injury. 3. Diabetes mellitus type 2. 4. Underweight state. 5. Normocytic anemia. 6. Drug abuse with crack/cocaine use. 7. Hypokalemia. 8. Hypocalcemia. 9. Protein-calorie malnutrition, mild to moderate. 10. Hypertension. SECONDARY DIAGNOSIS: Diabetes mellitus type 2. CHIEF COMPLAINT: Leg ulcers. HISTORY OF PRESENT ILLNESS: Rmxwl-[id number]-old woman with leg ulcers. Please refer to H and P for further details. HOSPITAL COURSE: Patient found to have multiple leg ulcers on both legs, worse on the right, related to her diabetes. She had acute kidney injury, rehydrated with IV fluids. Patient was positive for cocaine. She admits to smoking crack. She had protein-calorie malnutrition, mild to moderate and underweight state. Diet was encouraged and supplementation was provided. She had hypertension, hypocalcemia, and hypokalemia, all treated appropriately. Patient was subsequently discharged home with plan to followup outpatient. DISCHARGE MEDICATIONS: Per electronic medical record. FOLLOWUP: With primary care doctor in 1 week. CONDITION ON DISCHARGE: Stable and improving. DISCHARGE LOCATION: Home with antibiotic therapy. YEYO DODSON MD Job#: [id number]
--- NOTE | 2018-08-05 21:50 | Discharge Summary ---
ADDENDUM Patient was positive for MRSA of the skin wound. She was discharged home with ciprofloxacin and minocycline for treatment of polymicrobial infection and MRSA infection. YEYO DODSON MD Job#: [id number]
== END 2018-08-04 14:40 | disposition home health service (06) | DRG 638 ==
LOC: ER 10:58 → ERHOLD 13:03 → MED/SURG2 16:03
PROVIDERS: ADMIT Internal Medicine; ATTEND Internal Medicine
DX: E11.622 Type 2 diabetes mellitus with other skin ulcer (principal); L02.415 Cutaneous abscess of right lower limb; E44.0 Moderate protein-calorie malnutrition; F14.20 Cocaine dependence, uncomplicated; F19.20 Other psychoactive substance dependence, uncomplicated; L97.829 Non-pressure chronic ulcer of other part of left lower leg with unspecified severity; L97.819 Non-pressure chronic ulcer of other part of right lower leg with unspecified severity; L97.212 Non-pressure chronic ulcer of right calf with fat layer exposed; L03.115 Cellulitis of right lower limb; N17.9 Acute kidney failure, unspecified; Z68.21 Body mass index [BMI] 21.0-21.9, adult; Z71.51 Drug abuse counseling and surveillance of drug abuser; I10 Essential (primary) hypertension; J44.9 Chronic obstructive pulmonary disease, unspecified; Z88.0 Allergy status to penicillin; Z88.8 Allergy status to other drugs, medicaments and biological substances; E11.65 Type 2 diabetes mellitus with hyperglycemia; Z91.19 Patient's noncompliance with other medical treatment and regimen; E87.6 Hypokalemia; E83.51 Hypocalcemia; D64.9 Anemia, unspecified; B95.62 Methicillin resistant Staphylococcus aureus infection as the cause of diseases classified elsewhere; F12.10 Cannabis abuse, uncomplicated; F11.10 Opioid abuse, uncomplicated; R23.8 Other skin changes; L98.8 Other specified disorders of the skin and subcutaneous tissue
CPT/HCPCS: 36415; 71046; 80048; 80053; 80307; 81001; 82948; 83605; 85025; 87040; 87071; 87081; 87086; 87186; 87205; 99284; J0610; J0692; J1650; J2270; J2405; J3370; J7030